=== PATIENT | female | born 1930 | race Caucasian/White ===

== ENCOUNTER 2016-11-20 23:53 | Emergency (ER) | payer OTHER, BC ==
[2016-11-20 23:59] VITALS: BP 174/90; PULSE 81; TEMP 97.5; BMI 29.9
--- NOTE | 2016-11-20 23:59 | PDOC ---
History of Present Illness - General Chief Complaint: Injury Stated Complaint: S/P FALL Time Seen by Provider: 11/20/16 23:56 History Source: Patient Exam Limitations: No Limitations - History of Present Illness Initial Comments: 11/21/16 00:00 This is an 86-year-old female who comes in complaining of fall and injured her right wrist. Patient said she was coming out of worship approximately 1:00 this afternoon when she tripped and fell landing on her outstretched hand. Patient denies hitting her head or passing out. Patient also landed on her left knee resulting in an abrasion to the left knee. Patient's last tetanus is unknown. PAST MEDICAL HISTORY: no significant history PAST SURGICAL HISTORY: no significant history FAMILY HISTORY: no pertinant history SOCIAL HISTORY: Pt lives with family and is employed. MEDICATIONS: reviewed ALLERGIES: As per nursing notes Review of Systems General: No fevers or chills, no weakness, no weight loss HEENT: No change in vision. No sore throat,. No ear pain CardioVascular: No chest pain or shortness of breath Respiratory:No cough, or wheezing. Gastrointestinal: no nausea, vomitting, diarrhea or constipation, No rectal bleeding Genitourinary: No dysuria, hematuria, or frequency Musculoskeletal: No joint or muscle pain or swelling Neurologic: No headache, vertigo, dizziness or loss of consciousness Psychiatric: nor depression Skin: No rashes or easy bruising Endocrine: no increased thirst or abnormal weight change Allergic: no skin or latex allergy All other systems reviewed and normal GENERAL: The patient is awake, alert, and fully oriented, in no acute distress. HEAD: Normal with no signs of trauma. EYES: Pupils equal, round and reactive to light, extraocular movements intact, sclera anicteric, conjunctiva clear. EXTREMITIES: Left wrist is normal right wrist there is swelling tenderness and deformity over the distal radius. Neurovascular distal is intact. Left knee there is an abrasion over the anterior left knee, neurovascular distal is intact there is no bony tenderness of the knee. There is some mild tenderness of the soft tissue of the posterior knee. There is no ligamentous instability. There is no effusion of the knee. There is no tenderness to the patella. NEUROLOGICAL: Normal speech, normal gait. PSYCH: Normal mood, normal affect. SKIN: Warm, Dry, normal turgor, no rashes or lesions noted. 11/21/16 01:26 X-ray wrist questionable distal radius fracture CT head no acute intracranial pathology Assessment and plan: This is an 86-year-old female who fell onto her outstretched right wrist. Patient has a probable distal radius fracture. Patient given splint and will follow-up with an orthopedist. Past History - Past Medical History Allergies/Adverse Reactions: Allergies Allergy/AdvReac Type Severity Reaction Status Date / Time rivaroxaban [From Xarelto] AdvReac Severe vaginal Verified 11/21/16 00:36 bleeding Home Medications: Ambulatory Orders Aspirin [ASA -] 81 mg PO DAILY #0 tab.chew 01/08/13 Cholecalciferol (Vitamin D3) [D3 Dots] 1,000 unit PO DAILY #0 tablet 01/08/13 Fish Oil 500 mg Softgel 1,200 mg PO DAILY #0 01/08/13 Magnesium Hydroxide [Milk of Magnesia -] 30 ml PO DAILY PRN #1 ml 01/08/13 Cancer: Yes (LT BREAST CA) HTN: Yes Hypercholesterolemia: Yes - Psycho/Social/Smoking Cessation Hx Suicidal Ideation: No Smoking Status: No Smoking History: Never smoked Number of Cigarettes Smoked Daily: 0 Hx Alcohol Use: No *DC/Admit/Observation/Transfer Diagnosis at time of Disposition: Fracture of right wrist Qualifiers: Encounter type: initial encounter Fracture type: closed Qualified Code(s): S62.101A - Fracture of unspecified carpal bone, right wrist, initial encounter for closed fracture - Discharge Dispostion Disposition: HOME Condition at time of disposition: Good - Patient Instructions Additional Instructions: Wear the splint in tell you see an orthopedist. Tylenol or Motrin as needed for pain If he needed an orthopedist call Dr. Baugh's group at [phone] for an appointment Return to the emergency department immediately with ANY new, persistent or worsening symptoms. Continue any medications as previously prescribed by your physician. You should follow up with your primary doctor as soon as possible regarding today's emergency department visit. . Please make sure your doctor reviews the results of your emergency evaluation. Thank you for coming to the Emergency Department today for your care. It was a pleasure to see you today. Please note that your evaluation is INCOMPLETE until you follow-up with your doctor.
[2016-11-21] MEDS ORDERED: DIPHTH,PERTUSS(ACELL),TET 0.5 ML DISP.SYRIN IM ONE (00:02)
[2016-11-21] MEDS ORDERED: ACETAMINOPHEN 500 MG TABLET (FP) PO ONE (00:15)
== END 2016-11-21 01:38 | disposition home or self-care (01) ==
LOC: FER 23:53
PROC: 2W3EX1Z Immobilization of Right Hand using Splint (ICD-10-PCS; principal; 2016-11-20)
DX: S52.501A Unspecified fracture of the lower end of right radius, initial encounter for closed fracture (principal); W01.0XXA Fall on same level from slipping, tripping and stumbling without subsequent striking against object, initial encounter; Y93.9 Activity, unspecified; Y92.9 Unspecified place or not applicable; I10 Essential (primary) hypertension; E78.00 Pure hypercholesterolemia, unspecified; Z85.3 Personal history of malignant neoplasm of breast
CPT/HCPCS: 70450-TC; 73110-TC-RT; 90715; 99282-25

== ENCOUNTER 2017-04-28 10:40 | Day surgery (SDC) | payer OTHER, BC ==
[2017-04-23 09:09] VITALS: BMI 28.3
[2017-04-28 11:23] LABS: BASOPHIL 0.8 % (0-2.0); MCH 29.9 pg (25.7-33.7); MCHC 33.6 g/dl (32.0-36.0); MEAN CELL VOLUME 88.9 fl (80-96); MEAN PLT VOLUME 7.8 fl (7.5-11.1); NEUTROPHILS 59.8 % (42.8-82.8); PLATELET COUNT 212 K/MM3 (134-434); RDW 13.9 % (11.6-15.6); WHITE BLOOD COUNT 8.2 K/mm3 (4.0-10.0)
[2017-04-28 11:45] LABS: INR 1.03 (0.82-1.09); PROTHROMBIN TIME (PATIENT) 11.6 SEC (9.98-11.88)
[2017-04-28] MEDS ORDERED: PROPOFOL 20 ML ONE (12:38)
[2017-04-28] MEDS ORDERED: ROCURONIUM BROMIDE 50 MG/5 ML VIAL ONE (12:39)
[2017-04-28] MEDS ORDERED: SUCCINYLCHOLINE CHLORIDE 200 MG/10 ML VIAL ONE (12:39)
--- NOTE | 2017-04-28 12:45 | HP ---
Admitting History and Physical - Primary Care Physician PCP: Giancarlo Akhtar - Admission Chief Complaint: lung mass History of Present Illness: 87yo female with h/o HTN, hypercholesterolemia, breast ca s/p left mastectomy, lone afib who was found to have a lung mass on imaging after complaining of chronic cough. History Source: Patient, Medical Record Limitations to Obtaining History: No Limitations - Past Medical History Cardiovascular: Yes: HTN, Hyperlipdemia - Smoking History Smoking history: Never smoked Have you smoked in the past 12 months: No Aproximately how many cigarettes per day: 0 - Alcohol/Substance Use Hx Alcohol Use: No Home Medications - Allergies Allergies/Adverse Reactions: Allergies Allergy/AdvReac Type Severity Reaction Status Date / Time rivaroxaban [From Xarelto] AdvReac Severe vaginal Verified 11/21/16 00:36 bleeding - Home Medications Home Medications: Ambulatory Orders Aspirin [ASA -] 81 mg PO DAILY #0 tab.chew 01/08/13 Cholecalciferol (Vitamin D3) [D3 Dots] 1,000 unit PO DAILY #0 tablet 01/08/13 Losartan Potassium [Cozaar] 100 mg PO DAILY 04/23/17 Metoprolol Succinate [Toprol Xl -] 12.5 mg PO HS 04/23/17 Physical Examination Vital Signs: Vital Signs Temperature 97.7 F 04/28/17 11:33 Pulse Rate 82 04/28/17 11:33 Respiratory Rate 20 04/28/17 11:33 Blood Pressure 157/95 04/28/17 11:33 O2 Sat by Pulse Oximetry (%) 94 L 04/28/17 11:33 Labs: CBC, BMP 04/28/17 11:10 Imaging - Results Cat Scan: Report Reviewed, Image Reviewed Problem List - Problems (1) Lung mass Code(s): R91.8 - OTHER NONSPECIFIC ABNORMAL FINDING OF LUNG FIELD Assessment/Plan - for bronchoscopy today
[2017-04-28] MEDS ORDERED: LIDOCAINE HCL/PF 2% SDV 5ML VIAL ONE (13:21)
[2017-04-28] MEDS ORDERED: LIDOCAINE HCL 2% JELLY (5 ML/TUBE) ONE (13:21)
[2017-04-28] MEDS ORDERED: DEXAMETHASONE SOD PHOSPHATE 4 MG/1 ML VIAL ONE (13:21)
--- NOTE | 2017-04-28 13:27 | EKG ---
Test Reason : Blood Pressure : / mmHG Vent. Rate : 078 BPM Atrial Rate : 078 BPM P-R Int : 168 ms QRS Dur : 132 ms QT Int : 414 ms P-R-T Axes : 014 044 005 degrees QTc Int : 471 ms NORMAL SINUS RHYTHM RIGHT BUNDLE BRANCH BLOCK ABNORMAL ECG NO PREVIOUS ECGS AVAILABLE Confirmed by RUSS ORTIZ, AMBROCIO ([id number]) on 04/28/2017 1:27:00 PM Referred By: KATYA RAMIREZ Confirmed By:AMBROCIO SOLANO MD
--- NOTE | 2017-04-28 13:41 | PROC ---
Procedure Note Procedure: BRONCHOSCOPY NOTE After discussing the risks and benefits of the procedure, informed consent was obtained. Pt was placed under sedation and intubated with a size 8.0 ETT. Storz video bronchoscope was passed via the ETT and the airways were examined down to the subsegmental level. The marleni was slightly widened. There were no endobronchial lesions seen in either lung. The left upper lobe anterior segment was narrowed and edematous likely caused by extraluminal compression. Cytology passed into the segment. The segment was then lavaged with saline to obtain cultures and washings. Bronchoscope then withdrawn and procedure terminated. Pre-op Dx: lung mass Post-op Dx: same, no endobronchial component Plan: - f/u cultures and cytology Barry Sharma MD
[2017-04-28 14:58] VITALS: TEMP 98.2
[2017-04-28 15:47] VITALS: BP 152/79; PULSE 87
--- NOTE | 2017-04-29 13:12 | PATH ---
Cytology Non-Gynecological Report Patient Name: SERGIO MELGOZA [facility]. Rec. #: [id number] /Age/Gender: 1930 (Age: 87) / F Account: [id number] Location: [facility] SURGICAL Taken: 04/28/2017 Received: 04/28/2017 Reported: 04/29/2017 Physicians: Barry Sharma M.D. Specimen(s) Received A: BRONCHIAL WASHINGS B: BRONCHIAL BRUSHINGS Clinical History None given Final Diagnosis A. LUNG, LEFT UPPER LOBE, BRONCHIAL WASHING: SATISFACTORY FOR EVALUATION. BENIGN (NO MALIGNANT CELLS IDENTIFIED). BENIGN AND REACTIVE RESPIRATORY EPITHELIAL CELLS, ALVEOLAR MACROPHAGES, NEUTROPHILS, RED BLOOD CELLS, AND DEBRIS PRESENT. B. LUNG, LEFT UPPER LOBE, BRONCHIAL BRUSHING: SATISFACTORY FOR EVALUATION. BENIGN (NO MALIGNANT CELLS IDENTIFIED). BENIGN AND REACTIVE RESPIRATORY EPITHELIAL CELLS PRESENT. Comment: Recommend correlation with clinical and radiologic findings and follow up as clinically indicated. Electronically Signed Barry Ramos M.D. Gross Description A. Approximately 50 cc of bloody fluid received fixed in 50% alcohol. Two cytofunnels and one cellblock prepared. B. Approximately 50 cc of clear fluid received fresh. Two cytofunnels prepared.
== END 2017-04-28 15:49 | disposition home or self-care (01) ==
LOC: JASU-SURG 10:40
PROVIDERS: ATTEND Internal Medicine
PROC: 0BDG8ZX Extraction of Left Upper Lung Lobe, Via Natural or Artificial Opening Endoscopic, Diagnostic (ICD-10-PCS; principal; 2017-04-28 12:00)
DX: D38.1 Neoplasm of uncertain behavior of trachea, bronchus and lung (principal)
CPT/HCPCS: 36415; 71010-TC; 85025; 85610; 87070; 87102; 87116; 87205; 87206; 87210; 88104; 88108; 88305-TC; 93005; 93010; 94760

== ENCOUNTER 2017-08-08 08:25 | Day surgery (SDC) | payer OTHER, BC ==
[2017-08-07 10:44] VITALS: BMI 25.7
[2017-08-08 09:27] VITALS: TEMP 98.1
[2017-08-08 12:20] LABS: PLEURAL FLUID APPEARANCE CLEAR; PLEURAL FLUID COLOR YELLOW; PLEURAL FLUID RBC 1331 /mm3
[2017-08-08 12:33] LABS: GLUCOSE,PLEURAL FLUID 92.909; TOTAL PROTEIN,PLEURAL FLUID 5.649
[2017-08-08 13:27] LABS: PLEURAL FLUID LYMPHOCYTES 71 %; PLEURAL FLUID MACROPHAGES 28 %; PLEURAL FLUID NEUTROPHIL 1 %
[2017-08-08 14:08] VITALS: BP 145/70; PULSE 90
--- NOTE | 2017-08-12 14:36 | PATH ---
Cytology Non-Gynecological Report Patient Name: SERGIO MELGOZA [facility]. Rec. #: [id number] /Age/Gender: 1930 (Age: 87) / F Account: [id number] Location: RADIOLOGY [facility] [[email or web address]] Taken: 08/08/2017 Received: 08/08/2017 Reported: 08/12/2017 Physicians: Kory López M.D. Specimen(s) Received PLEURAL FLUID Clinical History None given Final Diagnosis PLEURAL FLUID, THORACENTESIS: SATISFACTORY FOR EVALUATION. POSITIVE FOR MALIGNANCY. 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 Comment: Immunohistochemical stains performed and interpreted at [facility] show the following results: The neoplastic cells stain with JEANNIE, AE1/3, CK7, and partially with TTF-1. The cells do not stain with CK20, estrogen receptor, or progesterone receptor. This case was discussed with Dr. Sharma on August 12, 2017. Electronically Signed Barry Ramos M.D. Gross Description A. Approximately 50 cc of yellow fluid received fixed in 50% alcohol. Two cytofunnels and one cellblock prepared. B. Approximately 1300 cc of yellow fluid received fresh. Two cytofunnels and one cellblock prepared.
== END 2017-08-08 13:10 | disposition home or self-care (01) ==
LOC: JRADIR 08:25
PROVIDERS: ATTEND Internal Medicine
PROC: 0W9B3ZZ Drainage of Left Pleural Cavity, Percutaneous Approach (ICD-10-PCS; principal; 2017-08-08)
PROC: BB4BZZZ Ultrasonography of Pleura (ICD-10-PCS; 2017-08-08)
DX: J90 Pleural effusion, not elsewhere classified (principal)
CPT/HCPCS: 71045-TC-FY; 76942; 82042; 82150; 82945; 83615; 84157; 84311; 84478; 87070; 87075; 87102; 87116; 87205; 87206; 87210; 88108; 88305-TC; 88341-TC; 88342-TC; 89051

== ENCOUNTER 2017-08-29 09:33 | Day surgery (SDC) | payer OTHER, BC ==
[2017-08-28 09:21] VITALS: BMI 27.3
[2017-08-29 09:53] LABS: BASO % 0.9 % (0-2.0); EOS % 0.8 % (0-4.5); HEMATOCRIT 41.6 % (32.4-45.2); HEMOGLOBIN 14.5 GM/dL (10.7-15.3); LYMPH % 28.1 % (8-40); MCH 30.9 pg (25.7-33.7); MCHC 34.7 g/dl (32.0-36.0); MEAN CELL VOLUME 89.2 fl (80-96); MEAN PLT VOLUME 7.5 fl (7.5-11.1); MONO % 8.4 % (3.8-10.2); NEUT % 61.8 % (42.8-82.8); PLATELET COUNT 215 K/MM3 (134-434); RBC 4.67 M/mm3 (3.60-5.2); RDW 14.3 % (11.6-15.6); WHITE BLOOD COUNT 7.3 K/mm3 (4.0-10.0)
[2017-08-29 10:13] LABS: INR 1.09 (0.82-1.09); PROTHROMBIN TIME (PATIENT) 12.3 SEC (9.98-11.88)
[2017-08-29 10:28] VITALS: TEMP 98.3
[2017-08-29 15:03] VITALS: BP 137/68; PULSE 89
== END 2017-08-29 14:35 | disposition home or self-care (01) ==
LOC: JRADIR 09:33
PROVIDERS: ATTEND Internal Medicine
PROC: 0W9B3ZZ Drainage of Left Pleural Cavity, Percutaneous Approach (ICD-10-PCS; principal; 2017-08-29)
PROC: BB4BZZZ Ultrasonography of Pleura (ICD-10-PCS; 2017-08-29)
DX: J90 Pleural effusion, not elsewhere classified (principal); C34.90 Malignant neoplasm of unspecified part of unspecified bronchus or lung; C55 Malignant neoplasm of uterus, part unspecified
CPT/HCPCS: 36415; 71046-TC-FY; 76942; 85025; 85610

== ENCOUNTER 2017-10-23 08:36 | Day surgery (SDC) | payer OTHER, BC ==
[2017-10-22 15:12] VITALS: BMI 26.2
[2017-10-23 09:05] LABS: BASO % 0.6 % (0-2.0); EOS % 0.5 % (0-4.5); HEMATOCRIT 40.2 % (32.4-45.2); HEMOGLOBIN 13.5 GM/dL (10.7-15.3); LYMPH % 24.3 % (8-40); MCH 30.3 pg (25.7-33.7); MCHC 33.6 g/dl (32.0-36.0); MEAN CELL VOLUME 90.1 fl (80-96); MEAN PLT VOLUME 7.3 fl (7.5-11.1); MONO % 8.2 % (3.8-10.2); NEUT % 66.4 % (42.8-82.8); PLATELET COUNT 230 K/MM3 (134-434); RBC 4.47 M/mm3 (3.60-5.2); WHITE BLOOD COUNT 7.5 K/mm3 (4.0-10.0)
[2017-10-23 09:19] LABS: INR 1.1 (0.82-1.09); PROTHROMBIN TIME (PATIENT) 12.4 SEC (9.7-13.0)
[2017-10-23 09:48] VITALS: TEMP 98.4
[2017-10-23 13:41] VITALS: BP 121/63; PULSE 88
== END 2017-10-23 13:15 | disposition home or self-care (01) ==
LOC: JRADIR 08:36
PROVIDERS: ATTEND Internal Medicine Hematology & Oncology
PROC: 0W9B3ZZ Drainage of Left Pleural Cavity, Percutaneous Approach (ICD-10-PCS; principal; 2017-10-23)
DX: J90 Pleural effusion, not elsewhere classified (principal); C34.90 Malignant neoplasm of unspecified part of unspecified bronchus or lung
CPT/HCPCS: 36415; 71045-TC-FY; 76942; 85025; 85610

== ENCOUNTER 2017-11-13 07:30 | Day surgery (SDC) | payer OTHER, BC ==
[2017-11-12 15:08] VITALS: BMI 26.2
[2017-11-13 14:16] VITALS: BP 133/63; PULSE 104
== END 2017-11-13 12:45 | disposition home or self-care (01) ==
LOC: JRADIR 07:30
PROVIDERS: ATTEND Internal Medicine Hematology & Oncology
PROC: 0B9P30Z Drainage of Left Pleura with Drainage Device, Percutaneous Approach (ICD-10-PCS; principal; 2017-11-13)
DX: C34.90 Malignant neoplasm of unspecified part of unspecified bronchus or lung (principal); J90 Pleural effusion, not elsewhere classified
CPT/HCPCS: 32550; 75989; C1729; 71045-TC-FY; 76098-TC-FY; 76998-TC; 87070; 87075; 87205; 87899; C1769; C1894